=== PATIENT | female | born 1990 | race Caucasian/White ===

== ENCOUNTER 2022-04-30 20:33 | Emergency (ER) | payer SELFPAY ==
[2022-04-30] MEDS ORDERED: Ibuprofen 600 MG Tab PO ONE (21:32)
[2022-04-30] MEDS ORDERED: traMADol 50 MG Tab PO ONE (21:32)
== END 2022-04-30 22:24 | disposition home or self-care (01) ==
LOC: MW.ED 20:33
DX: M23.92 Unspecified internal derangement of left knee (principal)
CPT/HCPCS: 73562; 99283; A9270